=== PATIENT | female | born 1990 | race Caucasian/White ===

== ENCOUNTER 2017-10-15 16:15 | Observation (INO) | payer MEDICAID ==
[~2017-10-15] VITALS: Ht 149.9 cm; Wt 68.9 kg
[2017-10-15] MEDS ORDERED: PREN1TAB80 PO (16:40)
[2017-10-15 17:00] VITALS: BP 112/58
== END 2017-10-15 17:40 | disposition home or self-care (01) ==
LOC: 4S 16:15
PROVIDERS: ADMIT Obstetrics & Gynecology; ATTEND Obstetrics & Gynecology
DX: O26.893 Other specified pregnancy related conditions, third trimester (principal); R03.0 Elevated blood-pressure reading, without diagnosis of hypertension; R80.9 Proteinuria, unspecified; Z3A.39 39 weeks gestation of pregnancy
CPT/HCPCS: 59025; G0378

== ENCOUNTER 2017-10-15 19:00 | Inpatient (IN) | payer MEDICAID ==
[~2017-10-15] VITALS: Ht 154.9 cm; Wt 69.4 kg
[~2017-10-15 19:00] MED LIST: PREN1TAB80 PO
[2017-10-24 05:25] VITALS: BP 117/67
[2017-10-24] MEDS ORDERED: RINGERS SOLUTION,LACTATED 1,000 ML IV PRN (06:03)
[2017-10-24] MEDS ORDERED: RINGERS SOLUTION,LACTATED 1,000 ML IV SCH (06:03)
[2017-10-24] MEDS ORDERED: OXYTOCIN 30 UNITS/LACT RINGERS 500 ML IV PRN (06:03)
[2017-10-24] MEDS ORDERED: METOCLOPRAMIDE HCL 5 MG/ML 2 ML VIAL IVP PRN (06:15)
[2017-10-24] MEDS ORDERED: CITRIC ACID/SODIUM CITRATE 30 ML SOLUTION UDCUP PO PRN (06:15)
[2017-10-24 06:44] LABS: BASOPHILS % (AUTO) 0.3 % (0.0-2.0); EOSINOPHILS % (AUTO) 0.6 % (1.0-6.0); HEMATOCRIT 35.4 % (36-46); HEMOGLOBIN 12.7 g/dL (12.0-16.0); LYMPHOCYTES # (AUTO) 3.4 K/uL (1.0-4.8); LYMPHOCYTES % (AUTO) 30.8 % (22.0-44.0); MEAN CORPUSCULAR HEMOGLOBIN 33.1 pg (26.0-34.0); MEAN CORPUSCULAR HGB CONC 35.8 G/dL (31.0-37.0); MEAN CORPUSCULAR VOLUME 93 fL (80-100); MONOCYTES # (AUTO) 0.8 K/uL (0.1-1.0); MONOCYTES % (AUTO) 7.3 % (2.0-9.0); NEUTROPHILS # (AUTO) 6.8 K/uL (1.8-7.7); PLATELET COUNT (AUTO)-OB 229 K/uL (150-450); RED BLOOD CELL COUNT(AUTO) 3.82 MIL/uL (4.00-5.20); RED CELL DISTRIBUTION WIDTH 15.8 % (11.5-14.5)
[2017-10-24] MEDS: FentaNYL CITRATE-PF 100 MCG/2 ML VIAL IVP PRN ×2 (06:51→06:56)
[2017-10-24] MEDS ORDERED: ROPIVACAINE HCL/PF 0.2% 100 ML ED ONE ×2 (07:53→14:15)
[2017-10-24] MEDS ORDERED: LIDOCAINE HCL/PF 1% 30 ML VIAL ONE (07:54)
[2017-10-24] MEDS ORDERED: OXYGEN THERAPY IH SCH (08:00)
[2017-10-24] MEDS ORDERED: ROPIVACAINE HCL/PF 0.2% 100 ML ED PRN (08:26)
[2017-10-24] MEDS ORDERED: ONDANSETRON HCL 4 MG/2 ML VIAL IVP PRN (08:30)
[2017-10-24] MEDS ORDERED: DiphenhydrAMINE HCL 50 MG/ML VIAL IVP PRN (08:30)
[2017-10-24] MEDS ORDERED: NALBUPHINE HCL 10 MG/ML VIAL IVP PRN (08:30)
[2017-10-24] MEDS ORDERED: CeFAZolin 2 GM/DEXTROSE 50 ML IV ONE ×2 (17:59→18:00)
[2017-10-24] MEDS ORDERED: LANOLIN 7 GM OINTMENT TP PRN (18:45)
[2017-10-24] MEDS ORDERED: BENZOCAINE 20%/MENTHOL 56 GM SPRAY CANISTER TP PRN (18:45)
[2017-10-24] MEDS ORDERED: GLYCERIN/WITCH HAZEL LEAF 40 PADS JAR TP PRN (18:45)
[2017-10-24] MEDS ORDERED: ACETAMINOPHEN/CODEINE 300-30 MG TABLET PO PRN (18:45)
[2017-10-24] MEDS: IBUPROFEN 800 MG TABLET PO SCH (20:07)
[2017-10-24] MEDS: ACETAMINOPHEN/CODEINE 300-30 MG TABLET PO PRN (20:53)
[2017-10-24] MEDS ORDERED: MAGNESIUM HYDROXIDE SUSPENSION 30 ML UDCUP PO SCH (21:00)
[2017-10-25] MEDS: IBUPROFEN 800 MG TABLET PO SCH ×2 (03:15→12:14)
[2017-10-25] MEDS: ACETAMINOPHEN/CODEINE 300-30 MG TABLET PO PRN (04:33)
[2017-10-25] MEDS ORDERED: IBUP-2070 PO (11:12)
[2017-10-25] MEDS ORDERED: SENNA/DOCUSATE SODIUM 187-50 MG TABLET PO ONE (11:15)
== END 2017-10-25 17:45 | disposition home or self-care (01) | DRG 560 ==
LOC: OBSVTOIN 10-24 04:34 → 4S 10-24 04:34
PROVIDERS: ADMIT Obstetrics & Gynecology; ATTEND Obstetrics & Gynecology
PROC: 0W8NXZZ Division of Female Perineum, External Approach (ICD-10-PCS; principal; 2017-10-24)
PROC: 10E0XZZ Delivery of Products of Conception, External Approach (ICD-10-PCS; 2017-10-24)
PROC: 3E0R3BZ Introduction of Anesthetic Agent into Spinal Canal, Percutaneous Approach (ICD-10-PCS; 2017-10-24)
PROC: 00HU33Z Insertion of Infusion Device into Spinal Canal, Percutaneous Approach (ICD-10-PCS; 2017-10-24)
DX: O77.0 Labor and delivery complicated by meconium in amniotic fluid (principal); O64.0XX0 Obstructed labor due to incomplete rotation of fetal head, not applicable or unspecified; O69.81X0 Labor and delivery complicated by cord around neck, without compression, not applicable or unspecified; Z3A.40 40 weeks gestation of pregnancy; Z37.0 Single live birth
CPT/HCPCS: 86850; 86900; 86901; J0690; J2590; J2795; J3010; J3490; J7120